=== PATIENT | male | born 1940 | race Caucasian/White ===

== ENCOUNTER → 2020-08-16 | Outpatient (CLI) | payer MEDICARE ==
[2020-08-03 10:44] VITALS: BP 132/75
[~2020-08-16] MED LIST: ASPI-630 PO; ASPI325T8 PO; ATOR40TA59 PO; BISO1TAB4 PO; DIPH25CA58 PO; HYDR12.575 PO; LISI-130 PO; PANT40TA77 PO
--- NOTE | 2020-08-16 16:56 | CARD ---
MR#: [id number] Date of Study: 08/16/2020 Ordering Physician: CARLINE KNOX, Referring Physician: CARLINE KNOX, Tech: APPROVED REPORT Procedure: Implantable loop recorder placement. Reason for procedure: Syncope, CVA, rule out arrhythmia Details: After appropriate informed consent the left chest was prepped and draped in usual sterile fashion. 2 0 mL of 1% lidocaine was instilled in the left parasternal space along the fourth rib. Next, a 0.5 i nch incision was made. Next a subcutaneous tunnel was created and a Biotronik implantable loop recor kayley was placed without difficulty. The incision was then closed with 1 absorbable 2-0 suture and Garry ri-Strips. There were no acute complications. <Conclusion> Successful placement of a Biotronik implantable loop recorder for evaluation of syncope and stroke. Signed by : Carline Knox, Electronically Approved : 08/16/2020 16:55:51
== END | disposition home or self-care (01) ==
LOC: LINQ 10:27
PROVIDERS: ATTEND Internal Medicine Cardiovascular Disease
DX: R55 Syncope and collapse (principal); I63.9 Cerebral infarction, unspecified; I25.10 Atherosclerotic heart disease of native coronary artery without angina pectoris; I10 Essential (primary) hypertension; Z79.82 Long term (current) use of aspirin; Z79.899 Other long term (current) drug therapy; Z98.890 Other specified postprocedural states
CPT/HCPCS: 33285; C1764

== ENCOUNTER → 2020-09-22 | Outpatient (CLI) | payer MEDICARE ==
[2020-08-03 10:44] VITALS: BP 132/75
[~2020-09-22] MED LIST changes: +REGADENOSON 0.4 MG/5 ML DISP.SYRIN. IV ONE
--- NOTE | 2020-09-22 12:09 | RAD ---
MR#: [id number] Date of Study: 09/22/2020 Ordering Physician: CARLINE KNOX, Referring Physician: JONATAN ROBERTSON Tech: RT Victoria DavidsonR) (N) APPROVED REPORT Test Type: Pharmacological Stress Nurse/Tech: KD JACOBS Test Indications: CAD Cardiac History: CAD, CABG, HTN- SEE EMR Medications: SEE EMR Medical History: CVA- SEE EMR Resting ECG: SR Resting Heart Rate: 67 bpm Resting Blood Pressure: 157/74mmHg Pretest Chest Pain: No chest pain Nurse/Tech Notes S1,S2, LUNGS CTA, DENIED CHEST PAIN OR SOA. VSS. Consent: The procedure was explained to the patient in lay terms. Informed consent was witnessed. Ted eout was entered into [employer]. History and Stress Test performed by RT Victoria DavidsonR) (N) Pharm. Details Pharmacologic stress testing was performed using 0.4mg per 5ml of regadenoson given intravenously ove r 7-10 seconds. Stress Symptoms PT TOLERATED TEST WELL, DENIED ANY SYMPTOMS. VSS. POST EXERCISE Reason for Termination: Infusion complete Max HR: 91 bpm Max Blood Pressure: 149/80mmHg Blood Pressure response to exercise: Normal blood pressure response during stress. Heart Rate response to exercise: WNL Chest Pain: No. Arrhythmia: No. ST Change: No. INTERPRETATION Stress EKG Conclusion: Baseline EKG showed sinus rhythm. Non-diagnostic changes at peak stress. No arrhythmias. Imaging Protocol IMAGE PROTOCOL: Rest Tc-99m/stress Tc-99m 1 day Rest: Stress: Viability: Radiopharm.Tc99m ZlbovstnsUh46c Sestamibi Dose10.3mCi 32.1mCi Duration 15min. 10min. Img Date 09/22/2020 09/22/2020 Inj-Img Ibmn85hix. 60min. Rest Admin Site:IV - Right AntecubitalAdministrator:RT Lety (R)(N) Stress Admin Site: IV - Right AntecubitalAdministrator: RT Lety (R)(N) STRESS DATA End Diast. Vol.55.0mlLVEDV index BSA31.0ml End Syst. Vol.11.0mlLVESV index BSA6.0ml Myocardial Mass98.0gEject. Hnulixgv72.0% Stress Scores Regional WT1.00Summed WT28.00 Regional WM0.00Summed WM0.00 Study quality was good. Left Ventricular size was Normal at Rest and Stress. Lung uptake was . Left Ventricular ejection fraction is 79%. The rest and stress images show normal perfusion, normal contraction and thickening. LV Perf. Quant 17 Seg. SSS1.00 17 Seg. SRS0.00 17 Seg. SDS1.00 Stress Defect Extent (% LAD)0.00Rest Defect Extent (% LAD)0.00Rev. Defect Extent (% LAD)0.00 Stress Defect Extent (% LCX) 12.50Rest Defect Extent (% LCX)0.00Rev. Defect Extent (% LCX)12.50 Stress Defect Extent (% RCA)0.00Rest Defect Extent (% RCA)0.00Rev. Defect Extent (% RCA)0.00 Stress Defect Extent (% YANET)2.20Rest Defect Extent (% YANET)0.00Rev. Defect Extent (% YANET)2.20 Conclusion 1. Regadenoson cardioisotope stress test did not show any evidence of ischemia or infarct. 2. Normal left ventricular systolic function with ejection fraction calculated at 79%. 3. Low risk for cardiac events. Signed by : Gui Aldridge, Electronically Approved : 09/22/2020 12:09:37
== END ==
LOC: NM 08:35
PROVIDERS: ATTEND Internal Medicine Cardiovascular Disease
DX: I25.10 Atherosclerotic heart disease of native coronary artery without angina pectoris (principal)
CPT/HCPCS: 78452; 93017; A9500; J2785

== ENCOUNTER → 2021-09-13 | Outpatient (CLI) | payer MEDICARE ==
[2020-08-03 10:44] VITALS: BP 132/75
[~2021-09-13] MED LIST changes: -BISO1TAB4 PO; +BISO1TAB83 PO; -REGADENOSON 0.4 MG/5 ML DISP.SYRIN. IV ONE
--- NOTE | 2021-09-14 07:41 | RAD ---
MR#: [id number] Date of Study: 09/13/2021 Ordering Physician: CARLINE KNOX, Referring Physician: CARLINE KNOX, Tech: Nino Nation MBA, RDMS, RVT, RDCS, RTR APPROVED REPORT Patient Location: OUT-PATIENT Laterality:Bilateral Indications CVA/TIA: Doppler Spectral Velocity Analysis Right Left pCCA 79/10 cm/spCCA 62/8 cm/s mCCA 45/11 cm/smCCA 83/17 cm/s dCCA 54/13 cm/sdCCA 47/13 cm/s Bulb 48/12 cm/sBulb 62/10 cm/s ECA 80/ cm/sECA 116/ cm/s pICA 45/12 cm/spICA 60/15 cm/s Taco 41/11 cm/smICA 53/15 cm/s dICA 53/15 cm/sdICA 80/18 cm/s Vert. 26/ cm/sVert. 26/ cm/s Subcl. 159/ cm/sSubcl. 101/ cm/s ICA/CCA 0.67ICA/CCA 1.29 Findings Grayscale images of the bilateral carotid vessels demonstrates mild diffuse atherosclerotic plaque. Velocities and spectral waveforms are within normal limits overall suggestive of 0 to less than 50% s tenosis. Normal ICA to CCA ratios. Normal antegrade vertebral velocities. Normal subclavian velocities. Critical Notification Critical Value: No <Conclusion> 1. No significant bilateral extracranial internal carotid arterial disease. Signed by : Carline Knox, Electronically Approved : 09/14/2021 07:40:32
--- NOTE | 2021-09-14 08:29 | CARD ---
MR#: [id number] Date of Study: 09/13/2021 Ordering Physician: CARLINE KNOX, Referring Physician: CARLINE KNOX, Tech: Karen Duarte [facility] APPROVED REPORT EXAM: Two-dimensional and M-mode echocardiogram with Doppler and color Doppler. Other Information Quality : Technically LimitedHR: 61bpm Rhythm : NSR INDICATION Hypertension/HCVD RISK FACTORS Hypertension Obesity Hyperlipidemia 2D DIMENSIONS Left Atrium(2D)3.9 (1.6-4.0cm)IVSd1.4 (0.7-1.1cm) Aortic Root(2D)3.1 (2.0-3.7cm)LVDd4.1 (3.9-5.9cm) LVOT Diameter2.1 (1.8-2.4cm)PWd1.2 (0.7-1.1cm) IVSs2.4 (0.8-1.2cm)LVDs2.2 (2.5-4.0cm) FS (%) 45.6 %PWs1.8 (0.8-1.2cm) SV57.6 mlLVEF(%)77.4 (>50%) Aortic Valve AoV Peak Alfredo.104.7cm/sAoV VTI21.6cm AO Peak GR.4.4mmHgLVOT Peak Alfredo.110.7cm/s LVOT VTI 23.38cmAO Mean GR.3mmHg EDILBERTO (VMAX)3.97tb9CWQ (VTI)3.65cm2 Mitral Valve MV E Qhdpbszd94.8cm/sMV DECEL OTCH921cv MV A Eujocdbu96.5cm/sMV FWS10ir E/A Ratio0.7MVA (PHT)4.02cm2 TDI E/Lateral E'8.5E/Medial E'9.2 Pulmonary Valve PV Peak Tkiauugz19.9cm/sPV Peak Grad.3mmHg Tricuspid Valve TR P. Mmrtgbix130lr/sTR Peak Gr.27mmHg LEFT VENTRICLE The left ventricle is normal size. There is mild concentric left ventricular hypertrophy. The left ve ntricular systolic function is normal and the ejection fraction is within normal range. Estimated eje ction fraction 60%. There is normal LV segmental wall motion. Transmitral Doppler flow pattern is Gra de I-abnormal relaxation pattern. RIGHT VENTRICLE The right ventricle is normal size. There is normal right ventricular wall thickness. The right ventr icular systolic function is normal. ATRIA The left atrium size is normal. The right atrium size is normal. The interatrial septum is intact wit h no evidence for an atrial septal defect or patent foramen ovale as noted on 2-D or Doppler imaging. AORTIC VALVE The aortic valve is normal in structure and function. Doppler and Color Flow revealed no significant aortic regurgitation. There is no significant aortic valvular stenosis. MITRAL VALVE The mitral valve is normal in structure and function. There is no evidence of mitral valve prolapse. There is no mitral valve stenosis. Doppler and Color-flow revealed trace mitral regurgitation. TRICUSPID VALVE The tricuspid valve is normal in structure and function. Doppler and Color Flow revealed mild tricusp id regurgitation. Estimated PAP 30 mmHg. There is no tricuspid valve stenosis. PULMONIC VALVE Doppler and Color Flow revealed no pulmonic valvular regurgitation. There is no pulmonic valvular cas nosis. GREAT VESSELS The aortic root is normal in size. The ascending aorta is normal in size. The IVC is normal in size a nd collapses >50% with inspiration. PERICARDIAL EFFUSION There is no evidence of significant pericardial effusion. Critical Notification Critical Value: No <Conclusion> The left ventricular systolic function is normal and the ejection fraction is within normal range. E stimated ejection fraction 60%. There is normal LV segmental wall motion. Signed by : Carline Knox, Electronically Approved : 09/14/2021 08:28:47
== END ==
LOC: ECHO 09:21
PROVIDERS: ATTEND Internal Medicine Cardiovascular Disease
DX: I65.23 Occlusion and stenosis of bilateral carotid arteries (principal); I07.1 Rheumatic tricuspid insufficiency
CPT/HCPCS: 93306; 93880; C8929